=== PATIENT | male | born 1940 | race Caucasian/White ===

== ENCOUNTER 2017-02-05 15:00 | Emergency (ER) | payer BC ==
--- NOTE | 2017-02-05 16:17 | RAD ---
SHOULDER-RIGHT 2 OR MORE VIEWS COMPARISON: None. HISTORY: Right shoulder pain after a fall today. FINDINGS: Views: Right shoulder AP, Grashey, and scapular Y Bones: No acute finding. Inferior osteophytic ridge of the acromion process. Joints: Normal glenohumeral joint. Osteoarthritis of the acromioclavicular joint. Soft tissues: Normal. IMPRESSION: 1. No acute finding. Osteoarthritis of the chronic clavicular joint. Inferior osteophyte of the acromion process.
== END 2017-02-05 17:05 | disposition home or self-care (01) ==
LOC: ED 15:00
DX: S49.91XA Unspecified injury of right shoulder and upper arm, initial encounter (principal); E11.9 Type 2 diabetes mellitus without complications; I10 Essential (primary) hypertension; W01.0XXA Fall on same level from slipping, tripping and stumbling without subsequent striking against object, initial encounter; Y93.01 Activity, walking, marching and hiking; Y92.009 Unspecified place in unspecified non-institutional (private) residence as the place of occurrence of the external cause